=== PATIENT | female | born 2000 | race Caucasian/White ===

== ENCOUNTER 2023-01-25 20:53 | Emergency (ER) | payer OTHER ==
[~2023-01-25] VITALS: Ht 165.1 cm; Wt 74.1 kg
[2023-01-25 21:06] VITALS: BP 132/95; TEMP 99.4
[2023-01-25] MEDS ORDERED: OMNICEF 300MG300 MG PO (21:41)
[2023-01-25 22:00] VITALS: PULSE 97
== END 2023-01-25 22:00 | disposition home or self-care (01) ==
LOC: COL.ER 20:53
DX: H66.91 Otitis media, unspecified, right ear (principal)